=== PATIENT | male | born 1965 | race Caucasian/White ===

== ENCOUNTER → 2016-09-01 | Day surgery (SDC) | payer OTHER ==
[~2016-09-01] VITALS: Ht 182.9 cm; Wt 103.4 kg
[~2016-09-01] MED LIST: ADDERALL 10 MG10 MG PO; DIAZEPAM10 M1 PO
--- NOTE | 2016-09-01 14:37 | Operative Report ---
Operative/Inv Procedure Report Surgery Date: 09/01/16 Name of Procedure: Radical excision soft tissue for margins following fibrosarcoma or excision chest Removal nonfunctioning generator soft tissue left chest Removal of wires generator chest pocket to lower neck Pre-Operative Diagnosis: Nonfunctioning generator left chest History of fibrosarcoma chest with incomplete margins Post-Operative Diagnosis: Same Estimated Blood Loss: less than 50ml Surgeon/Operator Coating Furnace: ALEJANDRO GAR,JULIUS Garcias Anesthesia: laryngeal mask airway Operative/Procedure Note Note: The patient was counseled OF the procedure the alternatives risks and the expected outcomes are switched his request for surgical intervention to remove nonviable and functioning pulse generator placed in the left chest subcutaneous tissue for migraine headaches. As well as patient had fibrosarcoma excised from the left chest without the margins. We discussed re-excising skin and then mostly the deeper muscle below the expected location of the tumor. I discussed with the patient cannot be exactly sure where the tumor was based on pathology reports it can be estimated grossly. The risk of infection bleeding possibly an open wound requiring prolonged wound care pain numbness also loss of function via the partial sacrifice of the pectoralis muscle. We discussed recurrence as well and definite visible scarring possibly hypertrophic or keloid in nature. Informed consent was signed the patient was marked. Particularly placed supine on the table. Venodyne boots were placed and then the range of motion meniscus was established intravenous antibiotic given. The chest and neck were prepped and draped in usual sterile fashion. 2 cm size incorporating the previous scar centrally. This protected for the subcutaneous tissue down to the muscle fascia. Flaps were developed on both sides. Extensive undermining provide tension-free closure which will be required due to the nature of the skin preoperatively being hypertrophic due to tension. Majority of the pectoralis in approximately 9 cm area below the anticipated location of the tumor was removed the electrocautery leaving a deep activity of the muscle. The generator was identified the inferior medial to the lower portion of the incision. The pocket was opened and the generator was removed with excess wires from deep scar. A complete capsulectomy was performed. An additional segment of wire was then removed up to the superior medial portion of the upper incision multiple layer closure was then carried out over a drain after completing extensive undermining
== END ==
LOC: STS 07-28 04:07
DX: D21.3 Benign neoplasm of connective and other soft tissue of thorax (principal); Z85.831 Personal history of malignant neoplasm of soft tissue; T85.890A Other specified complication of nervous system prosthetic devices, implants and grafts, initial encounter; G50.0 Trigeminal neuralgia; G43.909 Migraine, unspecified, not intractable, without status migrainosus; Z87.820 Personal history of traumatic brain injury; Z79.899 Other long term (current) drug therapy; F17.200 Nicotine dependence, unspecified, uncomplicated
CPT/HCPCS: 88305; J0131; J0690; J2250; J2405